=== PATIENT | male | born 1960 | race Caucasian/White ===

== ENCOUNTER 2023-10-01 12:37 | Outpatient (CLI) | payer MEDICARE, SELFPAY ==
[2023-10-01 20:00] LABS: Alanine Aminotransferase 33 U/L (6-50); Albumin Level 4.9 g/dL (3.5-5.1); Alkaline Phosphatase 77 U/L (38-126); Anion Gap 10 mmol/L (8-16); Aspartate Amino Transferase 39 U/L (17-59); Bilirubin,Total 0.8 mg/dL (0.2-1.3); Blood Urea Nitrogen 19 mg/dL (9-20); Calcium 10.2 mg/dL (8.4-10.2); Carbon Dioxide 27 mmol/L (22-30); Chloride 104 mmol/L (98-107); Cholesterol 287 mg/dL (0-200); Estimated Glomerular Filt Rate > 60; Glucose 94 mg/dL (65-110); HDL Direct 57 mg/dL; Potassium 4.7 mmol/L (3.4-5.0); Sodium 141 mmol/L (137-145); Triglycerides 330 mg/dL (<150)
[2023-10-01 20:11] LABS: LDL Cholesterol Direct 151 mg/dL
[2023-10-01 20:16] LABS: Hematocrit 49.1 % (42.0-52.0); Hemoglobin 15.9 g/dL (14.0-18.0); Mean Corpuscular HGB Conc 32.4 g/dl (32-36); Mean Corpuscular Hemoglobin 29.5 pg (26-34); Mean Corpuscular Volume 91.1 fl (80-100); Mean Platelet Volume 9.8 fl (7.4-10.4); Platelet Count Result 196 k/mm3 (150-375); Red Blood Count 5.39 M/mm3 (4.6-6.20); Red Cell Distribution Width 12.4 % (11.5-14.5); White Blood Count 5.8 K/mm3 (4.5-10.0)
[2023-10-01 20:33] LABS: Prostate Specific Antigen 2.7 ng/mL (< OR = 4.0)
== END 2023-10-01 12:38 | disposition home or self-care (01) ==
PROVIDERS: PCP Family Medicine; Visit Provider Family Medicine
DX: K21.9 Gastro-esophageal reflux disease without esophagitis (principal); Z12.5 Encounter for screening for malignant neoplasm of prostate; E66.3 Overweight
CPT/HCPCS: 36415; 80053; 80061; 84153; 85027; G0103

== ENCOUNTER 2023-10-08 10:07 | Outpatient (CLI) | payer MEDICARE, SELFPAY ==
[2023-10-10 23:23] LABS: H pylori, Urea Breath NOT DETECTED (NOT DETECTED)
== END 2023-10-08 10:08 | disposition home or self-care (01) ==
PROVIDERS: PCP Family Medicine; Visit Provider Family Medicine
DX: K21.9 Gastro-esophageal reflux disease without esophagitis (principal)
CPT/HCPCS: 83013

== ENCOUNTER 2024-12-02 09:39 | Outpatient (CLI) | payer MEDICARE, SELFPAY ==
--- NOTE | 2024-12-02 08:46 | EST_ITS ---
Patient Info Name: Sherley Mane Age: 64 years : 1960 Gender: Male Ht: 72 in Wt: 172 lbs BSA: 1.99 m2 Technical Quality: Good Exam Date: 12/02/2024 8:56 AM Exam Location: Echo Lab Patient Status: Outpatient Admit Date: 12/02/2024 Staff Ordering Physician: Devendra Lewis MD Assistant Foreman: Malena Das RDCS Attending Provider: DR. 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 Summary 1. 1. Negative Ernesto exercise stress test for ischemic ST changes by ECG criteria. 2. 2. Good functional capacity, achieving 10 METs of workload. 3. 3. Hypertensive response to exercise. 4. 4. Appropriate HR response to exercise. 5. 5. Appropriate HR recovery at 1 minute post exercise. 6. 6. Negative stress echocardiogram for ischemia by wall motion analysis. 7. 7. Patient informed of the above results. Stress Echo Findings Left Ventricle Appropriate increase in LV endocardial thickening with systole. Appropriate augmentation of contractility with systole. No wall motion abnormality. Left Ventricle Normal LV systolic function, no wall motion abnormality. Protocol: Ernesto Stress ECG Details Stage: REST Duration (min): 0 min : 49 sec Speed (mph): 0.0 Grade (%): 0 HR (bpm): 62 SBP (mmHg): 126 DBP (mmHg): 84 METS: --- Stage: REST Duration (min): 11 min : 12 sec Speed (mph): 0.0 Grade (%): 0 HR (bpm): 67 SBP (mmHg): 126 DBP (mmHg): 84 METS: --- Stage: STAGE 1 Duration (min): 1 min : 0 sec Speed (mph): 1.7 Grade (%): 10 HR (bpm): 91 SBP (mmHg): 126 DBP (mmHg): 84 METS: --- Stage: STAGE 1 Duration (min): 2 min : 0 sec Speed (mph): 1.7 Grade (%): 10 HR (bpm): 101 SBP (mmHg): 126 DBP (mmHg): 84 METS: --- Stage: STAGE 1 Duration (min): 3 min : 0 sec Speed (mph): 1.7 Grade (%): 10 HR (bpm): 102 SBP (mmHg): 166 DBP (mmHg): 83 METS: --- Stage: STAGE 2 Duration (min): 1 min : 0 sec Speed (mph): 2.5 Grade (%): 12 HR (bpm): 110 SBP (mmHg): 166 DBP (mmHg): 83 METS: --- Stage: STAGE 2 Duration (min): 2 min : 0 sec Speed (mph): 2.5 Grade (%): 12 HR (bpm): 113 SBP (mmHg): 176 DBP (mmHg): 81 METS: --- Stage: STAGE 2 Duration (min): 3 min : 0 sec Speed (mph): 2.5 Grade (%): 12 HR (bpm): 114 SBP (mmHg): 176 DBP (mmHg): 81 METS: --- Stage: STAGE 3 Duration (min): 1 min : 0 sec Speed (mph): 3.4 Grade (%): 14 HR (bpm): 126 SBP (mmHg): 219 DBP (mmHg): 82 METS: --- Stage: STAGE 3 Duration (min): 2 min : 0 sec Speed (mph): 3.4 Grade (%): 14 HR (bpm): 131 SBP (mmHg): 219 DBP (mmHg): 82 METS: --- Stage: STAGE 3 Duration (min): 2 min : 2 sec Speed (mph): 0.0 Grade (%): 0 HR (bpm): 132 SBP (mmHg): 219 DBP (mmHg): 82 METS: --- Stage: RECOVERY Duration (min): 0 min : 57 sec Speed (mph): 0.0 Grade (%): 0 HR (bpm): 86 SBP (mmHg): 220 DBP (mmHg): 61 METS: --- Stage: RECOVERY Duration (min): 1 min : 57 sec Speed (mph): 0.0 Grade (%): 0 HR (bpm): 78 SBP (mmHg): 220 DBP (mmHg): 61 METS: --- Stage: RECOVERY Duration (min): 2 min : 57 sec Speed (mph): 0.0 Grade (%): 0 HR (bpm): 68 SBP (mmHg): 144 DBP (mmHg): 79 METS: --- Stage: RECOVERY Duration (min): 3 min : 4 sec Speed (mph): 0.0 Grade (%): 0 HR (bpm): 66 SBP (mmHg): 144 DBP (mmHg): 79 METS: --- Rest HR: 67 bpm Peak HR: 132 bpm Rest Sys BP: 126 mmHg Peak Sys BP: 220 mmHg Max Pred HR: 154 bpm % Max Pred HR: 86 % Target HR: 131 bpm Max RPP: 29,040 bpm*mmHg Zhu Score: 6 BP Response: Patient exhibited a hypertensive response with stress Termination Reason: Reached target heart rate or workload Cardiac Symptoms: Shortness of breath Max ST Seg Deviation: 0.50 mm Total Time: 8 min : 2 sec Rest Alexandra BP: 84 mmHg Peak Alexandra BP: 61 mmHg Angina Score: None Total METS: 10.3 Resting ECG Sinus rhythm. Stress ECG No ST changes. Arrhythmias None. Report Signatures Stress ECG Echo
[2024-12-02 10:02] LABS: Hematocrit 52.9 % (42.0-52.0); Hemoglobin 17.6 g/dL (14.0-18.0); Mean Corpuscular HGB Conc 33.3 g/dl (32-36); Mean Corpuscular Hemoglobin 29.5 pg (26-34); Mean Corpuscular Volume 88.6 fl (80-100); Mean Platelet Volume 9.2 fl (7.4-10.4); Platelet Count Result 177 k/mm3 (150-375); Red Blood Count 5.97 M/mm3 (4.6-6.20); Red Cell Distribution Width 12.5 % (11.5-14.5); White Blood Count 5.5 K/mm3 (4.5-10.0)
[2024-12-02 10:30] LABS: LDL Cholesterol Direct 206 mg/dL
[2024-12-02 10:47] LABS: Prostate Specific Antigen 3.8 ng/mL (< OR = 4.0)
[2024-12-02 11:21] LABS: Alanine Aminotransferase 54 U/L (6-50); Albumin Level 4.7 g/dL (3.5-5.1); Alkaline Phosphatase 98 U/L (38-126); Anion Gap 11 mmol/L (4-12); Aspartate Amino Transferase 35 U/L (17-59); Blood Urea Nitrogen 13 mg/dL (9-20); Calcium 10.3 mg/dL (8.4-10.2); Carbon Dioxide 25 mmol/L (22-30); Chloride 106 mmol/L (98-107); Cholesterol 305 mg/dL (0-200); Estimated Glomerular Filt Rate > 60; Glucose 99 mg/dL (65-110); HDL Direct 59 mg/dL; Magnesium 2.2 mg/dL (1.6-2.3); Potassium 4.1 mmol/L (3.4-5.0); Sodium 142 mmol/L (137-145); Triglycerides 261 mg/dL (<150)
[2024-12-03 02:29] LABS: CRP, High Sensitivity 0.9 mg/L
--- OUTSIDE RECORDS SUMMARY | 2024-12-04 16:17 | XMS_ITS | Clinical Summary ---
Author Organization [id number] [place] Address [address] [place] [phone] Care Team Providers Care Compensation Programs Manager Name Role Phone Devendra Lewis MD Primary Care Provider [phone] [phone] Allergies No known active allergies Medications pantoprazole DR (PROTONIX) 40 mg EC tablet Take 1 tablet (40 mg total) by mouth daily 30 tablet 11 06/02/2024 Active fluticasone propionate (FLONASE) 50 mcg/actuation nasal spray 2 sprays daily 05/09/2024 Active Active Problems Problem Noted Date Diagnosed Date Rectal bleeding 08/15/2024 Hx of rectal polypectomy 08/15/2024 Rectal polyp 06/12/2024 Family history of colon cancer 10/03/2023 Gastroesophageal reflux disease without esophagi tis 10/03/2023 Family history of esophageal cancer 10/03/2023 Surgical History Surgery Date Site/Laterality Comments COLONOSCOPY 8-10 years COLONOSCOPY 06/02/2024 Family History Medical History Relation Name Comments Cancer Father Diabetes Father Hypertension Father Cancer Mother Relation Name Status Comments Father Mother Social History Tobacco Use Types Packs/Day Years Used Date Smoking Tobacco: Never Smokeless Tobacco: Never Alcohol Use Standard Drinks/Week Comments No 0 (1 standard drink = 0.6 oz pur e alcohol) AUDIT-C Answer Date Recorded Frequency of Alcohol Consumption Not on file 08/08/2024 Average Number of Drinks Not on file 024 Q3: How often do you have si x or more drinks on one occasion? Weekly 08/08/2024 Personal Safety Answer Date Recorded Have you ever been in or are you currently in a harmful physical or emotional relationship or is someone making you feel afraid or unsafe? 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 Gender Identity Not on file Sexual Orientation Not on file Obstetrics History Last Filed Vital Signs Vital Sign Reading Time Taken Comments Blood Pressure 122/92 08/15/2024 4:37 PM CDT Pulse 70 08/15/2024 4:37 PM CDT Temperature 36 ??C (96.8 ??F) 08/15/2024 4:17 PM CDT Respiratory Rate 14 08/15/2024 4:37 PM CDT Oxygen Saturation 90% 08/15/2024 4:37 PM CDT Inhaled Oxygen Concentration - - Weight 74.8 kg (165 lb) 08/15/2024 1:55 PM CDT Height 177.8 cm (5' 10 ) 08/15/2024 1:55 PM CDT Body Mass Index 23.68 08/15/2024 1:55 PM CDT Plan of Treatment Health Maintenance Due Date Last Done Comments Depression Screening 1960 Fall Risk Assessment 1960 Hepatitis C Screening 1960 Prostate Cancer Screening-PSA 1960 DTaP/Tdap/Td Vaccine (1 - Tdap) 1969 Hepatitis B Screening 1976 Zoster Vaccine (1 of 2) 2008 Pneumococcal vaccine 65+ (1 of 1 - PCV) 2023 Well Visit 65+ 2023 Influenza Vaccine (#1) 2024 8, 08/14/2016, 09/16/2015 Colon Cancer Screening-Colonoscopy 08/08/20342023, 06/02/2024 Colon Cancer Screening-CT Colonography Discontinued 08/15/2024, 08/08/2024, 06/02/2024 Colon Cancer Screening-DNA Stool Discontinued 08/15/2024, 08/08/2024, 06/02/2024 Colon Cancer Screening-FIT Discontinued 08/15, 08/08/2024, 06/02/2024 Colon Cancer Screening-Sigmoidoscopy Discontinue d 08/15/2024, 08/08/2024, 06/02/2024 Procedures Procedure Name Priority Date/Time Associated Diagnosis Comments FLEXIBLE SIGMOIDOSCOPY 2:06 PM CDT COLONOSCOPY 08/08/2024 2:17 PM CDT from Last 3 Months or Most Recently Relevant to Health Maintenance Results * Flexible Sigmoidoscopy (08/15/2024 2:06 PM CDT) Anatomical Region Laterality Modality Other Narrative Procedure Note Senait Soto MD - 08/15/2024 2:06 PM CDT [facility] Patient Name: Royal Mane Procedure Date: 08/15/2024 2:06 PM Date of : 1960 Admit Type: Outpatient Age: 63 Gender: Male Attending MD: Senait Soto M.D. Room: [facility] 2 Note Status: Finalized Procedure: Flexible Sigmoidoscopy Indications: Hematochezia after ESD of 2.5cm polyp Referring MD: Mery James M.D., Mery Jenkins M.D. Providers: Senait Soto M.D. Medicines: Monitored Anesthesia Care Complications: No immediate complications. Estimated Blood Loss: Estimated blood loss: none. Procedure: Pre-Anesthesia Assessment: - Prior to the procedure, a History and Physicalwas performed, and patient medications and allergieswere reviewed. The patient's tolerance of previous anesthesia was also reviewed. The risks andbenefits of the procedure and the sedation options and risks were discussed with the patient. All questions were answered, and informed consent was obtained. Prior Anticoagulants: The patient has taken noanticoagulant or antiplatelet agents. ASA Grade Assessment: III -A patient with severe systemic disease. Afterreviewing the risks and benefits, the patient was deemed in satisfactory condition to undergo the procedure. The benefits, risks, and alternatives to theprocedure and sedation were discussed and informed consentwas obtained. The GIF HQ190 [id number] endoscope was introduced through the anus and advanced to the the sigmoid colon. The flexible sigmoidoscopy was accomplished without difficulty. The patienttolerated the procedure well. Findings: A single post-resection 30 mm ulcer was found in the rectum. Oozingand friability from scope cap trauma was present. Possible spots ofhealing bleeding vessels seen. Coagulation for hemostasis using coagulation graspers was successful. Impression: - A single post-resection ulcer in the rectum.Treated with coagulation. - No specimens collected. Recommendation: - Patient has a contact number available for emergencies. The signs and symptoms of potential delayed complications were discussed with thepatient. Return to normal activities tomorrow. Written discharge instructions were provided to thepatient. - Discharge patient to home (with escort). - Full liquid diet today and tomorrow, then advanceto previous diet after if no further evidence ofbleeding. - Continue present medications. - Follow up with Dr. Jenkins as previouslyplanned. - In the unusual situation that you developabdominal pain, bleeding or other significant problems in the days following this procedure please call my officeat [phone] to speak to my nurse, Mari Cha.After hours and evenings please call [phone] andspeak to the GI fellow banquet set up person. Please tell them that Dr. Soto did your procedure and that you wereinstructed to have the fellow call me or the physiciancovering for me to discuss the management of your condition.If you have an urgent problem, [facility] and have the ER doctor call myoffice during the day or the GI Fellow after hours and weekends to arrange admission or transfer to our facility. Electronically signed by Senait Soto MD Senait Soto M.D. 08/15/2024 4:33:37 PM Number of Addenda: 0 Note Initiated On: 08/15/2024 2:06 PM us Senait Soto MD ENDOSCOPY PROCEDURES Final Resu lt * Colonoscopy (08/08/2024 2:17 PM CDT) Anatomical Region Laterality Modality Other Narrative Procedure Note Mery Jenkins MD - 08/08/2024 2:17 PM CDT [facility] Patient Name: Royal Mane Procedure Date: 08/08/2024 2:17 PM Date of : 1960 Admit Type: Outpatient Age: 63 Gender: Male Attending MD: Mery Jenkins M.D. Room: [facility] 9 Note Status: Finalized Procedure: Colonoscopy Indications: Therapeutic procedure for known rectal mass Referring MD: Mery James M.D. Providers: Mery Jenkins M.D. Medicines: Monitored Anesthesia Care Complications: No immediate complications. Estimated Blood Loss: Estimated blood loss: none. Procedure: Pre-Anesthesia Assessment: - Prior to the procedure, a History and Physicalwas performed, and patient medications, allergies and sensitivities were reviewed. The patient'stolerance of previous anesthesia was reviewed. - The risks and benefits of the procedure and the sedation options and risks were discussed with the patient. All questions were answered and informed consent was obtained. - Patient identification and proposed procedurewere verified prior to the procedure by the physician,the nurse and the anesthesiologist. The procedure was verified in the procedure room. - ASA Grade Assessment: II - A patient with mild systemic disease. - Monitored anesthesia care under the supervisionof a SOFT METALS HAND ENGRAVER was determined to be medically necessary forthis procedure based on review of the patient's medical history, medications, and prior anesthesiahistory. - Immediately prior to administration ofmedications, the patient was re-assessed for adequacy to receive sedatives. The benefits, risks and alternatives of theprocedure and sedation were discussed and informed consentwas obtained. All questions were answered. Please referto the signed informed consent document in the medical record. The scope was passed under direct vision.The GIF HQ190 [id number] endoscope was introduced through the anus and advanced to the sigmoid colon toexamine a mass. This was the intended extent. Thecolonoscopy was performed without difficulty. The patient tolerated the procedure well. The bowel preparation used was GoLYTELY via split dose instruction. The quality of the bowel preparation was good. Findings: The perianal and digital rectal examinations were normal. A frond-like/villous non-obstructing medium-sized mass was found inthe rectum. The central portion was more polypoid. The mass was non-circumferential and measured 25mm in diameter. This was [id number] from the anal verge but in difficult location along the first rectal valve. No bleeding was present. Preparations were made for endoscopic submucosal dissection. Thermal marking with the tip of a snare wasdone to hardeep the borders of the lesion. Demarcation of the lesion was performed to clearly identify boundaries of the lesion. A total of 9mL of a 0.1 mg/mL solution of epinephrine with indigo carmine inhetastarch was injected with adequate lift of the lesion from the muscularis propria. A circumferential incision around the lesion into thesubmucosa was performed with a dual knife (I type Erbe knife). The lesion wasthen dissected from the underlying deep layers with the electrocauteryknife using double clip-rubber band traction and retrieved with a cap. A 35mm area was resected. Resection and retrieval were complete. The margins and visible vessels were treated with soft coagulation. There was no bleeding during and at the end of the procedure. The defect site was treated with Purastat 3d Matric to reduce risk of bleeding. Impression: - 25mm polypoid mass in the rectum. Endoscopic submucosal dissection was performed using clip-traction method. Resection and retrieval were complete. Margins and visible vessels coagulated. Purastat Applied. Recommendation: - The patient will be observed post-procedure,until all discharge criteria are met. - Full liquid diet today. Soft/pureed diettomorrow. - Follow up pathology results. - Repeat full colonsocopy in 6 months. - In the unusual situation that you developabdominal, bleeding or other significant problems in the days following this procedure please call [phone]. After hours and evenings please call [phone] speak to the GI fellow banquet set up person. Please tell thefellow that Dr. Jenkinsdid your procedure and that you were instructed to have the fellow call me or the physician covering for me to discuss the managementof your condition. If you have an urgent problem,please go to the nearest emergency room and have the ER doctor call my office during the day or the GIfellow after hours and weekends to arrange admission or transfer to our facility. Please bring this report with you if you go to the emergency room. Electronically signed by Mery Jenkins MD Mery Jenkins M.D. 08/08/2024 3:54:39 PM . Number of Addenda: 0 Note Initiated On: 08/08/2024 2:17 PM Mery Jenkins MD ENDOSCOPY PROCEDURES Final Result from Last 3 Months or Most Recently Relevant to Health Maintenance Insurance MEDICARE SOLUTIONS MEDICARE SOLUTIONS MEDICARE SOLUTIONS Advance Directives For more information, please contact: [phone] * Full Code (Latest Code Status on File) Date Activated Date Inactivated Comments 08/15/2024 3:02 PM 08/15/2024 9:01 PM * Full Code Date Activated Date Inactivated Comments 06/02/2024 10:04 AM 06/02/2024 5:16 PM * Full Code Date Activated Date Inactivated Comments 06/02/2024 10:04 AM 06/02/2024 10:04 AM Care Teams Compensation Programs Manager Relationship Specialty Start Date End Date Devendra Lewis MD PCP - General Family Practice 05/26/24
--- OUTSIDE RECORDS SUMMARY | 2024-12-04 16:17 | XMS_ITS | Referral Summary ---
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 Room: [facility] ENDOSCOPY [facility] 2 Note Status: Finalized Procedure: [...] and informed consentwas obtained. The GIF [id number] [id number] endoscope was introduced through the anus and [...] following this procedure please call my officeat [phone] to speak to my nurse, Mari Cha.After hours and evenings please call [phone] andspeak to the GI fellow cloud operations engineer. Please tell them that Dr. Soto did your procedure and that you wereinstructed to have the fellow call me or the physiciancovering for me to discuss the management of your condition.If you have an urgent problem, [facility] and have the ER doctor call donnyffice during the day or the GI Fellow [...] Male Attending MD: Mery Jenkins M.D. Room: [facility] 9 Note Status: Finalized Procedure: [...] Monitored anesthesia care under the supervisionof a LOG RAFT WORKER was determined to be medically necessary forthis [...] was passed under direct vision.The GIF HQ190 [id number] endoscope was introduced through the anus and [...] and measured 25mm in diameter. This was [id number] from the anal verge but in difficult [...] the days following this procedure please call [phone]. After hours and evenings please call [phone] speak to the GI fellow cloud operations engineer. Please tell thefellow that Dr. Jenkinsdid your [...] Health Maintenance Insurance MEDICARE SOLUTIONS MEDICARE SOLUTIONS Advance Directives For more information, please contact: [phone] * Full Code (Latest Code Status on File) Date Activated Date Inactivated Comments 08/15/2024 3:02 PM 08/15/2024 9:01 PM * Full Code Date Activated Date Inactivated Comments 06/02/2024 10:04 AM 06/02/2024 5:16 PM * Full Code Date Activated Date Inactivated Comments 06/02/2024 10:04 AM 06/02/2024 10:04 AM Care Teams Unloader Operator Relationship Specialty Start Date End Date Devendra Lewis MD PCP - General Family Practice 05/26/24
--- OUTSIDE RECORDS SUMMARY | 2024-12-04 16:54 | XMS_ITS | Referral Summary ---
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 Room: [facility] 2 Note Status: Finalized [...] and informed consentwas obtained. The GIF [id number] [id number] endoscope was introduced through the anus and [...] following this procedure please call my officeat [phone] to speak to my nurse, Mari Cha.After hours and evenings please call [phone] andspeak to the GI fellow electronic communications technician. Please tell them that Dr. Soto did your procedure and that you wereinstructed to have the fellow call me or the physiciancovering for me to discuss the management of your condition.If you have an urgent problem, [facility] and have the ER doctor [...] Male Attending MD: Mery Jenkins M.D. Room: [facility] 9 Note Status: Finalized [...] Monitored anesthesia care under the supervisionof a PRODUCE PRODUCTION TEAM MEMBER was determined to be medically necessary forthis [...] was passed under direct vision.The GIF HQ190 [id number] endoscope was introduced through the anus and [...] and measured 25mm in diameter. This was [id number] from the anal verge but in difficult [...] the days following this procedure please call [phone]. After hours and evenings please call [phone] speak to the GI fellow electronic communications technician. Please tell thefellow that Dr. Jenkinsdid your [...] Relevant to Health Maintenance Insurance MEDICARE SOLUTIONS [facility] MEDICARE Address: [facility] [address] [place] [address] [facility] MED[facility] Address: [address] [address] MEDICARE SOLUTIONS [facility] MEDICARE Address: [address] [address] Advance Directives For more information, please contact: [phone] * Full Code (Latest Code Status on File) Date Activated Date Inactivated Comments 08/15/2024 3:02 PM 08/15/2024 9:01 PM * Full Code Date Activated Date Inactivated Comments 06/02/2024 10:04 AM 06/02/2024 5:16 PM * Full Code Date Activated Date Inactivated Comments 06/02/2024 10:04 AM 06/02/2024 10:04 AM Care Teams Beater Engineer Relationship Specialty Start Date End Date Devendra Lewis MD PCP - General Family Practice 05/26/24
--- OUTSIDE RECORDS SUMMARY | 2024-12-04 16:54 | XMS_ITS | Clinical Summary ---
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 Room: [facility] ENDOSCOPY ROOM 2 Note Status: Finalized [...] following this procedure please call my officeat [phone] to speak to my nurse, Mari Cha.After hours and evenings please call [phone] andspeak to the GI fellow iron assorter. Please tell them that Dr. Soto did your procedure and that you wereinstructed to have the fellow call me or the physiciancovering for me to discuss the management of your condition.If you have an urgent problem, please go to [facility] emergency room and have the ER [...] Male Attending MD: Mery Jenkins M.D. Room: [facility] ENDOSCOPY ROOM 9 Note Status: Finalized [...] Monitored anesthesia care under the supervisionof a COMPLIANCE SPEC was determined to be medically necessary forthis [...] was passed under direct vision.The GIF [id number] endoscope was introduced through the anus and [...] and measured 25mm in diameter. This was [id number] from the anal verge but in difficult [...] the days following this procedure please call [phone]. After hours and evenings please call [phone] speak to the GI fellow iron assorter. Please tell thefellow that Dr. Jenkinsdid your [...] Advance Directives For more information, please contact: [phone] * Full Code (Latest Code Status on File) Date Activated Date Inactivated Comments 08/15/2024 3:02 PM 08/15/2024 9:01 PM * Full Code Date Activated Date Inactivated Comments 06/02/2024 10:04 AM 06/02/2024 5:16 PM * Full Code Date Activated Date Inactivated Comments 06/02/2024 10:04 AM 06/02/2024 10:04 AM Care Teams Pacu Rn Relationship Specialty Start Date End Date Devendra Lewis MD PCP - General Family Practice 05/26/24
[2024-12-07 11:37] LABS: Testosterone Free 91.3 pg/mL (35.0-155.0); Testosterone Total 872 ng/dL (250-1100)
== END 2024-12-02 09:40 | disposition home or self-care (01) ==
PROVIDERS: PCP Family Medicine; Visit Provider Family Medicine
DX: K21.9 Gastro-esophageal reflux disease without esophagitis (principal); Z00.00 Encounter for general adult medical examination without abnormal findings; I25.10 Atherosclerotic heart disease of native coronary artery without angina pectoris; E66.3 Overweight; R53.83 Other fatigue; D49.2 Neoplasm of unspecified behavior of bone, soft tissue, and skin; Z12.5 Encounter for screening for malignant neoplasm of prostate; Z82.49 Family history of ischemic heart disease and other diseases of the circulatory system
CPT/HCPCS: 36415; 80053; 80061; 82607; 83735; 84153; 84402; 84403; 84443; 85027; 86141; 93351; G0103

== ENCOUNTER 2025-04-27 10:04 | Outpatient (CLI) | payer MEDICARE, SELFPAY ==
[2025-04-27 10:30] LABS: Basophils Percent Auto 0.4 % (0.2-1.2); Eosinophils Absolute Auto 0.1 K/mm3 (0-0.3); Eosinophils Percent Auto 2.6 % (0-4.4); Hematocrit 48.2 % (42.0-52.0); Hemoglobin 15.9 g/dL (14.0-18.0); Immature Granulocyte Absolute 0.02 K/mm3 (0.00-0.031); Immature Granulocyte Percent A 0.4 % (0-0.5); Lymphocytes Absolute Auto 1.51 K/mm3 (0.9-3.2); Lymphocytes Percent Auto 30.8 % (18.3-44.2); Mean Corpuscular Hemoglobin 29.2 pg (26-34); Mean Corpuscular Volume 88.6 fl (80-100); Mean Platelet Volume 8.9 fl (7.4-10.4); Monocytes Absolute Auto 0.5 K/mm3 (0.1-0.6); Monocytes Percent Auto 10.2 % (2.6-8.5); Neutrophils Absolute Auto 2.7 K/mm3 (1.3-6.7); Neutrophils Percent Auto 55.6 % (45.5-73.1); Platelet Count Result 189 k/mm3 (150-375); Red Blood Count 5.44 M/mm3 (4.6-6.20); Red Cell Distribution Width 12.5 % (11.5-14.5); White Blood Count 4.9 K/mm3 (4.5-10.0)
--- OUTSIDE RECORDS SUMMARY | 2025-04-27 10:52 | XMS_ITS | Referral Summary ---
Author Organization [facility] [address] Address [address] [place] [address] Care Team Providers Care Coin Machine Supervisor Name Role Phone Devendra Lewis MD Primary Care Provider [phone] [phone] Encounters Date Type Department Care Team Description 02/23/2025 Results Follow-Up [facility] G[facility]enterology [address] [place] [address] 2nd Floor [address] [place] [address] Mery Jenkins MD Surgical pathology 02/20/2025 9:08 AM CDT Anesthesia Event [facility] [address] [address] Alberto Matson MD Hubbard, Gary Lee, CRNA 02/20/2025 9:00 AM CDT - 02/20/2025 9:30 AM CDT Surgery [facility] [address] [address] Mery Jenkins MD COLON BIOPSY 02/20/2025 8:15 AM CDT - 02/20/2025 10:27 AM CDT Hospital Encounter [facility] [address] [place] [address] Mery Jenkins MD Rectal mass Discharge Disposition: Discharge to home or self care 02/19/2025 Telephone [facility] G[facility]enterology [address] Medical Office [address], [address] [place] [address] Lisa Torres, ZONIA Follow-up from Last 3 Months Allergies No known active allergies Medications pantoprazole DR (PROTONIX) 40 mg EC tablet Take 1 tablet (40 mg total) by mouth daily 30 tablet 11 06/02/2024 Active fluticasone propionate (FLONASE) 50 mcg/actuation nasal spray 2 sprays daily 05/09/2024 Active Active Problems Problem Noted Date Diagnosed Date Rectal mass 01/21/2025 Rectal bleeding 08/15/2024 Hx of rectal polypectomy [...] making you feel afraid or unsafe? 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 Gender Identity Not on file Sexual Orientation Not on file Last Filed Vital Signs Vital Sign Reading Time Taken Comments Blood Pressure 122/86 02/20/2025 9:54 AM CDT Pulse 67 02/20/2025 9:54 AM CDT Temperature 36 C (96.8 F) 02/20/2025 9:34 AM CDT Respiratory Rate 17 02/20/2025 9:54 AM CDT Oxygen Saturation 96% 02/20/2025 9:54 AM CDT Inhaled Oxygen Concentration - - Weight 77.1 kg (170 lb) 02/20/2025 8:34 AM CDT Height 177.8 cm (5' 10) 02/20/2025 8:34 AM CDT Body Mass Index 24.39 02/20/2025 8:34 AM CDT Plan of Treatment Not on file Procedures Procedure Name Priority Date/Time Associated Diagnosis Comments SURGICAL PATHOLOGY Routine 02/20/2025 9: 27 AM CDT Rectal mass COLON BIOPSY 02/20/2025 9:08 AM CDT Rectal mass COLONOSCOPY 02/20/2025 7:16 AM CDT from Last 3 Months Results * Surgical pathology (02/20/2025 9:27 AM CDT) Tissue (Colon, Biopsy) 02/20/2025 9:27 AM CDT Narrative PATHOLOGY [facility] - 02/23/2025 3:36 PM CDT EPIC results best viewed via link to PDF [facility] [place] [address] Note to Patients: This report may contain a detailed description of human tissue sent by a health care provider to the laboratory for pathologic evaluation. The content of this report is essential for diagnosis and may provide important critical findings. This information may be unfamiliar to patients to review without a medical professional present. It is advised that the patient review this report in the presence of a health care provider who can answer questions and explain the details. SURGICAL PATHOLOGY REPORT FINAL Patient Name: ROYAL PATEL Gender: Radha : 1960 (Age: 64) Address: [address] [place], [place] [id number] Hospital #: [id number] Taken:02/20/2025 Received:02/20/2025 Reported: 02/23/2025 Patient Type: [facility] Service: Gastro Location: Physician(s): Elif Iglesias M.D. Dr. Ahmad Karadaghy, M.D. Diagnosis: Rectum, scar, biopsy: - Rectal mucosa with reactive epithelial changes. - Negative for dysplasia. chxm/02/23/2025 09:51 By this signature, I attest that the above diagnosis is based upon my personal examination of the slides(and/or other material indicated in the diagnosis). Kaleb Alonzo MD, PHD Report Electronically Reviewed and Signed Out By Kaleb Alonzo MD, PHD 02/23/2025 15:36:11 History: The patient is a 64-year-old man with a rectal mass. Operative Procedure: Colonoscopy. Specimen(s) Received: A: Rectal scar bx Gross Description: Received in formalin labeled with the patient's identifiers and rectal scar biopsy is a 0.5 x 0.3 x 0.1 cm aggregate of multiple blake tissue fragments. Entirely submitted in A1. Jar 0. dxb/02/20/2025 15:16 PA(s): SHUN Farooq PA(ASCP)CM By this signature, I attest that the above diagnosis is based upon my personal examination of the slides(and/or other material). Addenda/Procedures The performance characteristics of some immunohistochemical stains, fluorescence in-situ hybridization tests and immunophenotyping by flow cytometry cited in this report (if any) were determined by the Surgical Pathology and Flow Cytometry Departments at [facility] as part of an ongoing air quality instrument specialist program and in compliance with federally mandated regulations drawn from the Clinical Laboratory Improvement Act of 1988 (CLIA '88). Some of these tests rely on the use of analyte specific reagents and are subject to specific labeling requirements by the US Food and Drug Administration. Such diagnostic tests may only be performed in a facility that is certified by the Department of Health and Human Services as a high complexity laboratory under CLIA '88. The FDA has determined that such clearance or approval is not necessary. This test is used for clinical purposes. It should not be regarded as investigational or for research. Nevertheless, federal rules concerning the medical use of analyte specific reagents require that the following disclaimer be attached to the report: This test was developed and its performance characteristics determined by the Surgical Pathology and Flow Cytometry Departments of [facility]. It has not been cleared or approved by the U. S. Food and Drug Administration. IMAGES AND SCANNED DOCUMENTS, IF INCLUDED, ONLY VIEWABLE IN PDF VERSION OF REPORT Mery Jenkins MD LAB PATHOLOGY ORDERAB LES Final Result PATHOLOGY [facility] [address] [place] [phone] * Colonoscopy (02/20/2025 7:16 AM CDT) Anatomical Region Laterality Modality Other Narrative Procedure Note Mery Jenkins MD - 02/20/2025 7:16 AM CDT [facility] Patient Name: Royal Patel Procedure Date: 02/20/2025 7:16 AM Date of : 1960 Admit Type: Outpatient Age: 64 Gender: Male Attending MD: Mery Jenkins M.D. Room: [facility] ENDOSCOPY ROOM 2 Note Status: Finalized Procedure: Colonoscopy Indications: High risk colon cancer surveillance: Personalhistory of large rectal poly removed with ESD, here forfull colonsocopy but reports BM havent been clear Referring MD: Mery James M.D. Providers: Mery [...] Monitored anesthesia care under the supervisionof a FLUX PLANT OPERATOR was determined to be medically necessary forthis [...] scope was passed under direct vision.The GIF [id number] endoscope was introducedthrough the anus and advanced to the cecum, identified by appendiceal orifice and ileocecal valve. The colonoscopy was performed without difficulty. The patient tolerated the procedure well. The bowel preparation used was GoLYTELY via split dose instruction. The quality of the bowel preparationwas inadequate. Findings: The perianal and digital rectal examinations were normal. A moderate amount of semi-liquid stool was found in the entire colon, making visualization difficult. I was able to reach the cecum without large lesions, however, small polyps may have been missed. A medium post ESD scar was found in the rectum. The scar tissue was healthy in appearance. There was no evidence of the previous polyp.This was biopsied with a cold forceps for histology. Impression: - Liquid stool in the entire examined colon making visualization difficult, cecum reached. Smallpolyps may have been missed. - Post-ESD scar in the rectum.No recurrence or residual. Biopsied. Recommendation: - The patient will be observed post-procedure,until all discharge criteria are met. - Advance diet as tolerated today. - Await pathology results. - Repeat colonoscopy, with two day bowel prep, in1-2 years for surveillance. - In the unusual situation that you developabdominal, bleeding or other significant problems in the days following this procedure please call [phone] After hours and evenings please call [phone] speak to the GI fellow public information officer. Please tell thefellow that Dr. Jenkins did your procedure and that you were instructed to have the fellow call me or the physician covering for me to discuss the managementof your condition.. If you have an urgent problem,please go to the nearest emergency room and have the ER doctor call my office during the day or [facility] ([phone] after hours and weekends to arrange admission or transfer to our facility. Attending Participation: I personally performed the entire procedure. Electronically signed by Mery Jenkins MD Mery Jenkins M.D. 02/20/2025 10:20:48 AM . Number of Addenda: 0 Note Initiated On: 02/20/2025 7:16 AM Mery Jenkins MD ENDOSCOPY PROCEDURES Final Result from Last 3 Months Insurance [facility] MEDICARE ADVANTAGE Advance Directives For more information, please contact: [phone] * Full Code (Latest Code Status on File) Date Activated Date Inactivated Comments 02/20/2025 8:30 AM 02/20/2025 2:33 PM * Full Code Date Activated Date Inactivated Comments 08/15/2024 3:02 PM 08/15/2024 9:01 PM * Full Code Date Activated Date Inactivated Comments 06/02/2024 10:04 AM 06/02/2024 5:16 PM * Full Code Date Activated Date Inactivated Comments 06/02/2024 10:04 AM 06/02/2024 10:04 AM Care Teams Coin Machine Supervisor Relationship Specialty Start Date End Date Devendra Lewis MD PCP - General Family Practice 05/26/24
--- OUTSIDE RECORDS SUMMARY | 2025-04-27 10:52 | XMS_ITS | Clinical Summary ---
Author Organization [facility] [address] [place] Address [address] [place] [address] Care Team Providers Care Snowboarding Instructor Name Role Phone Devendra Lewis MD Primary Care Provider [phone] -[phone] Allergies No known active allergies Medications pantoprazole [...] 10/03/2023 Family history of esophageal cancer 10/03/2023 Encounters Date Type Department Care Team Description 02/23/2025 Results Follow-Up [facility] Gastroenterology [address] [facility] 2nd Floor [address] [place] [address] Mery Jenkins MD Surgical pathology 02/20/2025 9:08 AM CDT Anesthesia Event [facility] [address] [facility] [address] [place] [address] Alberto Matson MD Hubbard, Gary Lee, CRNA 02/20/2025 9:00 AM CDT - 02/20/2025 9:30 AM CDT Surgery [facility] [address] [place] [address] Mery Jenkins MD COLON BIOPSY 02/20/2025 8:15 AM CDT - 02/20/2025 10:27 AM CDT Hospital Encounter [facility] [address] [address] Mery Jenkins MD Rectal mass Discharge Disposition: Discharge to home or self care 02/19/2025 Telephone [facility] Gastroenterology [address] [facility] [address], [address] [place] [address] Lisa Torres RN Follow-up from Last 3 Months Surgical History Surgery Date Site/Laterality Comments COLONOSCOPY 8-10 years COLONOSCOPY 06/02/2024 Medical History Medical History Date Comments GERD (gastroesophageal reflux disease) Family History Medical History Relation Name Comments [...] on file 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 Gender Identity Not on file Sexual Orientation [...] 02/20/2025 8:34 AM CDT Plan of Treatment Health Maintenance Due Date Last Done Comments Depression Screening 1960 Hepatitis C Screening 1960 Prostate Cancer Screening-PSA 1960 DTaP/Tdap/Td Vaccine (1 - Tdap) 1969 Hepatitis B Screening 1976 Pneumococcal vaccine 65+ (1 of 1 - PCV) 2008 Zoster Vaccine (1 of 2) 2008 Well Visit 65+ 2023 Influenza Vaccine (Season Ended) 2025 08/16/2018, 08/14/2016, 09/16/2015 Fall Risk Assessment 02/20/2026 02/20/2025 Colon Cancer Screening-Colonoscopy 02/20/2035 02/20/2025, 08/08/2024, 06/02/2024 Colon Cancer Screening-CT Colonography Discontinued 02/20/2025, 08/15/2024, 08/08/2024, Additional history exists Colon Cancer Screening-DNA Stool Discontinued 02/20/2025, 08/15/2024, 08/08/2024, Additional history exists Colon Cancer Screening-FIT Discontinued 02/20, 08/15/2024, 08/08/2024, Additional history exists Colon Cancer Screening-Sigmoidoscopy Discontinued 02/20/2025, 08/15/2024, 08/08/2024, Additional history exists Procedures Procedure Name Priority Date/Time Associated Diagnosis Comments SURGICAL PATHOLOGY Routine 02/20/2025 9: 27 AM CDT Rectal mass COLON BIOPSY 02/20/2025 9:08 AM CDT Rectal mass COLONOSCOPY 02/20/2025 7:16 AM CDT from Last 3 Months Results * Surgical pathology (02/20/2025 9:27 AM CDT) Tissue (Colon, Biopsy) 02/20/2025 9:27 AM CDT Narrative PATHOLOGY [facility] - 02/23/2025 3:36 PM CDT EPIC results best viewed via link to PDF [facility] [place] [address] Note to Patients: This report may contain [...] REPORT FINAL Patient Name: ROYAL PATEL Gender: M : 1960 (Age: 64) Address: [address] [place] [address] Hospital #: [id number] Taken:02/20/2025 Received:02/20/2025 Reported: 02/23/2025 Patient Type: [facility] Service: Gastro Location: Physician(s): Elif Iglesias M.D. Dr. Ahmad Karadaghy, M.D. Diagnosis: Rectum, scar, biopsy: - Rectal mucosa with reactive epithelial changes. - Negative for dysplasia. [facility]/02/23/2025 09:51 By this signature, I attest that [...] Jar 0. dxb/02/20/2025 15:16 PA(s): SHUN Farooq PA([facility])CM By this signature, I attest that the above diagnosis is based upon my personal examination of the slides(and/or other material). Addenda/Procedures The performance characteristics of some immunohistochemical stains, fluorescence in-situ hybridization tests and immunophenotyping by flow cytometry cited in this report (if any) were determined by the Surgical Pathology and Flow Cytometry Departments at [facility] as part of an ongoing lead quality control technician program and in compliance with federally mandated [...] Surgical Pathology and Flow Cytometry Departments of [facility]. It has not been cleared or approved by the U. S. Food and Drug Administration. IMAGES AND SCANNED DOCUMENTS, IF INCLUDED, ONLY VIEWABLE IN PDF VERSION OF REPORT Mery Jenkins MD LAB PATHOLOGY ORDERAB LES Final Result PATHOLOGY [facility] 3rd Floor [place], [place] [phone] * Colonoscopy (02/20/2025 7:16 AM CDT) Anatomical Region Laterality Modality Other Narrative Procedure Note Mery Jenkins MD - 02/20/2025 7:16 AM CDT [facility] Patient Name: Royal Patel Procedure Date: 02/20/2025 7:16 AM Date of : 1960 Admit Type: Outpatient Age: 64 Gender: Male Attending MD: Mery Jenkins M.D. Room: [facility] ENDOSCOPY ROOM 2 Note Status: [...] Monitored anesthesia care under the supervisionof a WARP TESTER was determined to be medically necessary forthis [...] scope was passed under direct vision.The [id number] [id number] endoscope was introducedthrough the anus and [...] the days following this procedure please call [phone] After hours and evenings please call [phone] speak to the GI fellow collection systems technician. Please tell thefellow that Dr. Jenkins did your procedure and that you were instructed to have the fellow call me or the physician covering for me to discuss the managementof your condition.. If you have an urgent problem,please go to the nearest emergency room and have the ER doctor call my office during the day or [facility][phone] after hours and weekends to arrange admission or transfer to our facility. Attending Participation: I personally performed the entire procedure. Electronically signed by Mery Jenkins MD Mery Jenkins M.D. 02/20/2025 10:20:48 AM . Number of Addenda: 0 Note Initiated On: 02/20/2025 7:16 AM Mery Jenkins MD ENDOSCOPY PROCEDURES Final Result from Last 3 Months Insurance [employer] MEDICARE ADVANTAGE [facility] MEDICARE ADVANTAGE [facility] MEDICARE ADVANTAGE Advance Directives For more information, please contact: [phone] * Full Code (Latest Code Status on File) Date Activated Date Inactivated Comments 02/20/2025 8:30 AM 02/20/2025 2:33 PM * Full Code Date Activated Date Inactivated Comments 08/15/2024 3:02 PM 08/15/2024 9:01 PM * Full Code Date Activated Date Inactivated Comments 06/02/2024 10:04 AM 06/02/2024 5:16 PM * Full Code Date Activated Date Inactivated Comments 06/02/2024 10:04 AM 06/02/2024 10:04 AM Care Teams Snowboarding Instructor Relationship Specialty Start Date End Date Devendra Lewis MD PCP - General Family Practice 05/26/24
[2025-04-27 10:53] LABS: Alanine Aminotransferase 39 U/L (6-50); Albumin Level 4.5 g/dL (3.5-5.1); Alkaline Phosphatase 93 U/L (38-126); Aspartate Amino Transferase 38 U/L (17-59); Blood Urea Nitrogen 16 mg/dL (9-20); Calcium 9.7 mg/dL (8.4-10.2); Carbon Dioxide 25 mmol/L (22-30); Chloride 107 mmol/L (98-107); Estimated Glomerular Filt Rate > 60; Glucose 95 mg/dL (65-110); Total Protein 7.6 g/dL (6.3-8.2)
[2025-04-27 11:14] LABS: Hepatitis B Surface Antigen Negative (Negative)
[2025-04-27 11:20] LABS: HAV RESULT Negative (Negative); Hepatitis B Core IgM Result Negative (Negative)
[2025-04-27 11:31] LABS: Hepatitis C Virus Antibody Negative (Negative)
[2025-04-27 11:32] LABS: Anion Gap 7 mmol/L (4-12); Sodium 139 mmol/L (137-145)
[2025-04-27 11:43] LABS: Iron 159 ug/dL (49-181)
[2025-04-27 11:52] LABS: Percent Iron Saturation 45 % (20-50)
[2025-04-27 12:07] LABS: Prostate Specific Antigen 3.7 ng/mL (< OR = 4.0)
[2025-04-30 15:39] LABS: Erythropoietin (EPO) 7.5 mIU/mL (2.6-18.5)
[2025-05-01 09:15] LABS: Apolipoprotein B 147 mg/dL
== END 2025-04-27 10:05 | disposition home or self-care (01) ==
LOC: ANHLAB 10:05
PROVIDERS: PCP Family Medicine; Visit Provider Family Medicine
DX: K21.9 Gastro-esophageal reflux disease without esophagitis (principal); R74.01 Elevation of levels of liver transaminase levels; E83.52 Hypercalcemia; D75.1 Secondary polycythemia; R53.83 Other fatigue; Z00.00 Encounter for general adult medical examination without abnormal findings; Z12.5 Encounter for screening for malignant neoplasm of prostate; E78.5 Hyperlipidemia, unspecified
CPT/HCPCS: 36415; 80053; 80074; 82172; 82607; 82668; 83540; 83550; 84153; 85025; G0103